=== PATIENT | female | born 1960 | race Caucasian/White ===

== ENCOUNTER 2016-09-13 10:54 | Emergency (ER) | payer OTHER ==
[~2016-09-13] VITALS: Ht 165.1 cm; Wt 51.8 kg
[~2016-09-13 10:54] MED LIST: ALBU18HF INHALATION; ALPR1TAB2 PO; AZIT250T94 PO; BACTDS PO; IBUP-1542 PO; ONDA4TAB8 PO; PRED20TA PO; VITAMIN D WEEKLY; [UNRECOGNIZED DRUG - OTHER]
[2016-09-13 11:05] VITALS: Ht 165.1 cm; Wt 51.8 kg
--- NOTE | 2016-09-13 13:13 | RADRPT ---
PROCEDURE: Chest x-ray CLINICAL INDICATION: cough. TECHNIQUE: One-view frontal. COMPARISON: 10/22/2015 FINDINGS: The cardiac silhouette is normal. No infiltrates are noted. No hilar abnormalities are identified. No pneumothorax or pleural effusions are visualized. Numerous surgical clips overlie the right hilar region and right lower lung zone. IMPRESSION: 1. No active cardiopulmonary changes. RPTAT: HH .Navjot Garber MD, MD Date Time Electronically viewed and signed by .Navjot Garber MD, MD on 09/13/2016 13:12 .G/
[2016-09-13] MEDS ORDERED: LIDOCAINE/MYLANTA 40 ML BTL PO ONE (13:30)
[2016-09-13 13:57] LABS: BASOPHILS % 0.5 % (0.0-2.0); EOSINOPHILS # 0.1 10^3/ul (0.0-0.5); HEMATOCRIT 40.5 % (37.0-47.0); HEMOGLOBIN 13.5 g/dl (12.0-16.0); LYMPHOCYTES # 0.6 10^3/ul (0.8-2.9); LYMPHOCYTES % 9.7 % (15.0-51.0); MEAN CORPUSCULAR HEMOGLOBIN 29.9 pg (29.0-33.0); MEAN CORPUSCULAR HGB CONC 33.3 g/dl (32.0-37.0); MEAN CORPUSCULAR VOLUME 89.7 fl (82.0-101.0); MEAN PLATELET VOLUME 8.1 fl (7.4-10.4); MONOCYTE # 0.7 10^3/ul (0.3-0.9); MONOCYTES % 10.5 % (0.0-11.0); NEUTROPHIL # 5.1 10^3/ul (1.6-7.5); NEUTROPHILS % 77.3 % (39.0-77.0); PLATELET COUNT 263 10^3/UL (140-440); RED BLOOD COUNT 4.52 10^6/ul (4.20-5.40); RED CELL DISTRIBUTION WIDTH 13.7 % (11.5-14.5); UNCORRECTED WBC 6.6 10^3/ul (4.8-10.8); WHITE BLOOD COUNT 6.6 10^3/ul (4.8-10.8)
[2016-09-13 14:00] LABS: CONDITION 1
[2016-09-13 14:10] LABS: ALBUMIN 4.5 g/dl (3.3-4.9); CHLORIDE 100 mmol/L (97-110); SODIUM 143 mmol/L (135-144)
[2016-09-13 14:11] LABS: POTASSIUM 4.1 mmol/L (3.5-5.1)
[2016-09-13 14:12] LABS: CREATININE 0.64 mg/dl (0.44-1.00)
[2016-09-13 14:13] LABS: ALANINE AMINOTRANSFERASE 29 IU/L (13-69); ALBUMIN/GLOBULIN RATIO 1.18; ALKALINE PHOSPHATASE 106 IU/L (42-121); ANION GAP 19 (8-16); ASPARTATE AMINO TRANSFERASE 35 IU/L (15-46); BILIRUBIN,INDIRECT 0.2 mg/dl (0-1.1); BILIRUBIN,TOTAL 0.2 mg/dl (0.2-1.3); BLOOD UREA NITROGEN 10 mg/dl (7-20); CARBON DIOXIDE 28 mmol/L (21-31); GLUCOSE 100 mg/dl (70-220); TOTAL PROTEIN 8.3 g/dl (6.1-8.1)
[2016-09-13 14:14] LABS: CALCIUM 9.1 mg/dl (8.4-10.2)
[2016-09-13 14:26] LABS: TROPONIN-I < 0.012 ng/ml (0.00-0.12)
[2016-09-13 14:56] LABS: D-DIMER < 220.00 ng/ml (<460)
[2016-09-13] MEDS ORDERED: FAMO-18 PO (15:21)
[2016-09-13] MEDS ORDERED: BENZ100C70 PO (15:21)
[2016-09-13] MEDS ORDERED: ACET500C5 PO (15:21)
--- NOTE | 2016-09-13 15:28 | ERD ---
ER Documentation Chief Complaint Date/Time DATE: 09/13/16 TIME: 15:23 Chief Complaint pt bib self with c/o cough and feels sob, tired for a few wks HPI 56-year-old female with a past medical history of hyperlipidemia, breast cancer presents to the ED complaining of a burning sensation in her chest. States that she has a productive cough. Reports that she has itchy ears. States that her bilateral calves are also slightly painful. States that the pain as an achy type of pain and rates it a 8 out of 10. Denies any weakness, shortness of breath, abdominal pain, nausea, vomiting, numbness or tingling. Patient reports that her neighbor is also sick with similar symptoms of cough. Patient reports that she also traveled to [facility] All systems reviewed and are negative except as per history of present illness. Medications Home Meds Active Scripts Famotidine* (Pepcid*) 20 Mg Tablet, 20 MG PO BID, #30 TAB Prov:ALESSANDRO MENA-C 09/13/16 Benzonatate* (Tessalon Perle*) 100 Mg Capsule, 100 MG PO Q8H Y for COUGH, #20 CAP Prov:ALESSANDRO MENA-C 09/13/16 Acetaminophen* (Tylophen*) 500 Mg Capsule, 1 CAP PO Q6H Y for PAIN AND OR ELEVATED TEMP, #20 CAP Prov:ALESSANDRO MENA-C 09/13/16 Ondansetron Hcl* (Zofran*) 4 Mg Tablet, 4 MG PO Q6H for NAUSEA AND/OR VOMITING, #30 TAB Prov:VIC,CAROLINA P FONDANT MACHINE OPERATOR 03/08/16 Azithromycin* (Zithromax*) 250 Mg Tablet, 250 MG PO DAILY for 4 Days, TAB Prov:MANAGYADYODCAROLINA P FONDANT MACHINE OPERATOR 03/08/16 Sulfamethoxazole-Trimethoprim* (Bactrim* DS) 800-160 Mg Tab, 1 TAB PO BID for 7 Days, #14 TAB Prov:ABELINO TRAN MD 03/03/16 Prednisone* (Prednisone*) 20 Mg Tab, 40 MG PO DAILY for 4 Days, TAB Prov:ABELINO TRAN MD 03/03/16 Prednisone* (Prednisone*) 20 Mg Tab, 40 MG PO DAILY for 4 Days, TAB Prov:ABELINO TRAN MD 10/22/15 Albuterol Sulfate* (Ventolin HFA*) 18 Gm Hfa.aer.ad, 2 PUFF INHALATION Q4H for 7 Days, INHALER Prov:ABELINO TRAN MD 10/22/15 Ibuprofen* (Ibuprofen*) 600 Mg Tablet, 600 MG PO Q6, #14 TAB Prov:ABELINO TRAN MD 10/22/15 Reported Medications [vitamin D weekly] No Conflict Check 09/05/14 [nueroton] No Conflict Check 09/05/14 Alprazolam* (Xanax*) 1 Mg Tab, 1 MG PO Q8H Y for ANXIETY, TAB 09/05/14 Allergies Allergies: Coded Allergies: Penicillins (Verified Allergy, Unknown, ANAPHALAXIS, 05/25/14) REACTION TO ALL "CILLINS" PER PT. lidocaine (Verified Allergy, Unknown, ANAPHALAXIS, 05/25/14) "EVERYTHING "PIPE" " PER PT. Uncoded Allergies: BARIUM (Allergy, Unknown, ABD SWELLING, 05/23/14) PMhx/Soc History of Surgery: Yes (MASTECTOMY, BREAST RECONSTRUCTION, LEFT KNEE) Anesthesia Reaction: Yes (nausea, diaphoretic) Hx Neurological Disorder: No Hx Respiratory Disorders: Yes Hx Cardiac Disorders: No Hx Psychiatric Problems: No Hx Miscellaneous Medical Probl: Yes (HYPERLIPEDEMIA, BRONCHITIS) Hx Alcohol Use: No Hx Substance Use: No Hx Tobacco Use: No Smoking Status: Never smoker Physical Exam Vitals Vital Signs Date Time Temp Pulse Resp B/P Pulse Ox O2 Delivery O2 Flow Rate FiO2 09/13/16 11:05 98.3 104 18 103/69 98 Physical Exam Const: [id number], well-nourished. In no acute distress. Head: Atraumatic, normocephalic Eyes: Normal Conjunctiva without injection. No purulent discharge. PERRL. EOMI ENT: Normal external ear. Ear canal without erythema. Tympanic membrane pearly mcduffie without effusion or bulging. Nasal canal clear with normal turbinates. Moist oropharynx without tonsillar exudates. Non-erythematous pharynx. Uvula midline. No drooling. No trismus. Neck: Full range of motion. No meningismus. No cervical lymphadenopathy. Resp: Clear to auscultation bilaterally. No wheezing, rhonchi, rales, or crackles. No accessory muscle use. No retractions. Cardio: Regular rate and rhythm. No murmurs, rubs or gallops. Abd: Soft, non tender, non distended. Normal bowel sounds. No palpable masses. No rebound tenderness. No guarding. Skin: No petechiae or rashes Back: No midline tenderness. No CVA tenderness. Ext: No cyanosis, or edema. Neur: Awake and alert. Psych: Normal Mood and Affect Result Diagram: 09/13/16 1340 09/13/16 1340 Results 24 hrs Laboratory Tests Test 09/13/16 13:40 Alanine Aminotransferase (ALT/SGPT) 29IU/L Albumin 4.5g/dl Albumin/Globulin Ratio 1.18 Alkaline Phosphatase 106IU/L Anion Gap 19 Aspartate Amino Transf (AST/SGOT) 35IU/L Basophils # 0.010^3/ul Basophils % 0.5% Blood Urea Nitrogen 10mg/dl Calcium Level 9.1mg/dl Carbon Dioxide Level 28mmol/L Chloride Level 100mmol/L Creatinine 0.64mg/dl D-Dimer < 220.00ng/ml D-Dimer Comment Direct Bilirubin 0.00mg/dl Eosinophils # 0.110^3/ul Eosinophils % 2.0% Globulin 3.80g/dl Glucose Level 100mg/dl Hematocrit 40.5% Hemoglobin 13.5g/dl Indirect Bilirubin 0.2mg/dl Lipase 111U/L Lymphocytes # 0.610^3/ul Lymphocytes % 9.7% Mean Corpuscular Hemoglobin 29.9pg Mean Corpuscular Hemoglobin Concent 33.3g/dl Mean Corpuscular Volume 89.7fl Mean Platelet Volume 8.1fl Monocytes # 0.710^3/ul Monocytes % 10.5% Neutrophils # 5.110^3/ul Neutrophils % 77.3% Nucleated Red Blood Cells # 0.010^3/ul Nucleated Red Blood Cells % 0.0/100WBC Platelet Count 25621^3/UL Potassium Level 4.1mmol/L Red Blood Count 4.5210^6/ul Red Cell Distribution Width 13.7% Sodium Level 143mmol/L Total Bilirubin 0.2mg/dl Total Protein 8.3g/dl Troponin I < 0.012ng/ml White Blood Count 6.610^3/ul Current Medications Medications (Trade) Dose Ordered Sig/Oscar Route PRN Reason Start Time Stop Time Status Last Admin Dose Admin Miscellaneous Medication (Gi Cocktail (2)) 40 ml ONCE ONCE PO 09/13/16 13:30 09/13/16 13:31 DC 09/13/16 13:43 Procedures/MDM 56-year-old female with a past medical history of breast cancer, hyperlipidemia presents the ED complaining of a burning sensation in her chest, productive cough, bilateral calf pain. Patient is afebrile and nontoxic-appearing. Patient is slightly tachycardic at 104. EKG, chest x-ray, CBC, CMP, lipase, d- dimer, troponin was ordered to further evaluate patient. Patient was treated with here in the ED with GI cocktail with improvement of her pain. CBC: No leukocytosis. No e/o of systemic infection. No e/o anemia. CMP: No e/o severe acidosis, alkalosis, renal failure, diabetic ketoacidosis, liver disease Lipase within normal limits. Urine: No leukocyte esterase, no nitrites, no hematuria. Troponin negative D-Dimer negative PERC Criteria Assessment: Age > 50: Yes HR > 100: Yes 02 < 95%: No H/o DVT/PE: No Recent trauma/surgery: No Hemoptysis: No Exogenous Estrogen: No Unilateral Leg swelling: No Pretest probability > 15%: No EKG reviewed and interpreted by Dr. Palomo Rate/Rhythm: [Normal Sinus Rhythm] No ectopy, no ST elevations, normal axis. QRS, ST, T-waves: [No changes consistent w/ acute ischemia] Impression: [No evidence of ischemia or arrhythmia] Low suspicion for acute myocardial infarction, pneumothorax, pneumonia, cardiac tamponade, pulmonary embolism, AAA, aortic dissection, Boerhaave's syndrome, cardiac dysrhythmias,meningitis, intracranial bleed, seizure, stroke, TIA or other emergent conditions. PROCEDURE: Chest x-ray CLINICAL INDICATION: cough. TECHNIQUE: One-view frontal. COMPARISON: 10/22/2015 FINDINGS: The cardiac silhouette is normal. No infiltrates are noted. No hilar abnormalities are identified. No pneumothorax or pleural effusions are visualized. Numerous surgical clips overlie the right hilar region and right lower lung zone. IMPRESSION: 1. No active cardiopulmonary changes. This patient presents to the ED with symptoms consistent with a viral influenza. Patient is afebrile and has normal vital signs. Patient's physical exam include lungs which were clear to auscultation and a normal pulse oximetry. There is a low suspicion for pneumonia, pneumothorax, pulmonary embolism, epiglottitis, otitis media, otitis externa, viral/strep pharyngitis, sinusitis, peritonsillar abscess, mastoiditis, retropharyngeal abscess, meningitis, sepsis, acute abdomen or other emergent conditions. Fluids, rest, and symptomatic treatment are recommended for the management of patient's symptoms. Discharge medications: Tessalon Perles, Tylenol, Famotidine Follow up with primary care physician in 1-2 days. Instructed patient to return to the ED sooner for any worsening symptoms. Patient's questions were answered. Patient understood and agreed with discharge plan. Patient discharged stable. Departure Diagnosis: Primary Impression: Flu-like symptoms Condition: Stable Patient Instructions: Gerd (Adult), Influenza (Adult) Referrals: PENDING SALE TO [facility] YOU HAVE RECEIVED A MEDICAL SCREENING EXAM AND THE RESULTS INDICATE THAT YOU DO NOT HAVE A CONDITION THAT REQUIRES URGENT TREATMENT IN THE EMERGENCY DEPARTMENT. FURTHER EVALUATION AND TREATMENT OF YOUR CONDITION CAN WAIT UNTIL YOU ARE SEEN IN YOUR DOCTORS OFFICE WITHIN THE NEXT 1-2 DAYS. IT IS YOUR RESPONSIBILITY TO MAKE AN APPOINTMENT FOR [facility]- CARE. IF YOU HAVE A PRIMARY DOCTOR --you should call your primary doctor and schedule an appointment IF YOU DO NOT HAVE A PRIMARY DOCTOR YOU CAN CALL OUR PHYSICIAN REFERRAL HOTLINE AT IF YOU CAN NOT AFFORD TO SEE A PHYSICIAN YOU CAN CHOSE FROM THE FOLLOWING [facility] [address] [facility]. [facility] [address] [facility] [facility] [address] [facility] [facility] [address] [facility]. [facility] [address] [facility]. [facility]. [address] [facility] YOU HAVE RECEIVED A MEDICAL SCREENING EXAM AND THE RESULTS INDICATE THAT YOU DO NOT HAVE A CONDITION THAT REQUIRES URGENT TREATMENT IN THE EMERGENCY DEPARTMENT. FURTHER EVALUATION AND TREATMENT OF YOUR CONDITION CAN WAIT UNTIL YOU ARE SEEN IN YOUR DOCTORS OFFICE WITHIN THE NEXT 1-2 DAYS. IT IS YOUR RESPONSIBILITY TO MAKE AN APPOINTMENT FOR FOLOW-UP CARE. IF YOU HAVE A PRIMARY DOCTOR --you should call your primary doctor and schedule and appointment IF YOU DO NOT HAVE A PRIMARY DOCTOR YOU CAN CALL OUR PHYSICIAN REFERRAL HOTLINE AT . IF YOU CAN NOT AFFORD TO SEE A PHYSICIAN YOU CAN CHOSE FROM THE FOLLOWING ON LICENSE OF [facility] INSTITUTIONS: [facility] [address] [place] [address] [facility] [address] [place] [address] [facility] + [facility] [address] [place] [address] [facility] URGENT CARE/SPECIALTIES Additional Instructions: FOLLOW UP WITH YOUR PRIMARY CARE PHYSICIAN TOMORROW.Return to this facility if you are not improving as expected. ALESSANDRO MENA PA-C Sep 13, 2016 15:28
[2016-09-13 15:35] VITALS: BP 108/71; PULSE 94; RESP 18; TEMP 98.4
== END 2016-09-13 15:35 | disposition home or self-care (01) ==
LOC: FTE 10:54
DX: R05 Cough (principal); R07.89 Other chest pain; M79.662 Pain in left lower leg; M79.661 Pain in right lower leg; Z85.3 Personal history of malignant neoplasm of breast
CPT/HCPCS: 36415; 71010; 80053; 83690; 84484; 85025; 85378; 93005; Z7502; Z7610

== ENCOUNTER 2016-09-24 13:11 | Emergency (ER) | payer OTHER ==
[~2016-09-24] VITALS: Wt 51.5 kg
[~2016-09-24 13:11] MED LIST changes: +ACET500C5 PO; +BENZ100C70 PO; +FAMO-18 PO
[2016-09-24] MEDS ORDERED: AZIT250T94 PO (14:28)
--- NOTE | 2016-09-24 15:26 | ERD ---
ER Documentation Chief Complaint Date/Time DATE: 09/24/16 TIME: 15:23 Chief Complaint coughing and white sputum for the past few days. no recent fevers. HPI This is a 56-year-old female presents to the ER with cough for the last month. Patient states she isn't coughing up white sputum. Patient was here recently and was given lidocaine. Patient states that we tried to "poison" her, because he gave her something that she is allergic to. Patient states that because of this she developed a line infection. Patient denies any chest pain or shortness of breath. She denies any fevers or chills. She denies any weight loss. She denies any rashes. She denies any, tongue, eye swelling. ROS 12 point review of systems was done, all negative except per HPI. Medications Home Meds Active Scripts Azithromycin* (Zithromax*) 250 Mg Tablet, 250 MG PO .ZPACK DIRECTED, #6 TAB TAKE 500 MG (2 TABS) THE FIRST DAY THEN 250 MG (1 TAB) DAYS 2-5 Prov:DANIELE GARCIA 09/24/16 Famotidine* (Pepcid*) 20 Mg Tablet, 20 MG PO BID, #30 TAB Prov:ALESSANDRO MENA-C 09/13/16 Benzonatate* (Tessalon Perle*) 100 Mg Capsule, 100 MG PO Q8H Y for COUGH, #20 CAP Prov:ALESSANDRO MENA-C 09/13/16 Acetaminophen* (Tylophen*) 500 Mg Capsule, 1 CAP PO Q6H Y for PAIN AND OR ELEVATED TEMP, #20 CAP Prov:ALESSANDRO MENA-C 09/13/16 Ondansetron Hcl* (Zofran*) 4 Mg Tablet, 4 MG PO Q6H for NAUSEA AND/OR VOMITING, #30 TAB Prov:MANAGUELOD,CAROLINA P SOUNDING DEVICE OPERATOR 03/08/16 Azithromycin* (Zithromax*) 250 Mg Tablet, 250 MG PO DAILY for 4 Days, TAB Prov:MANAGUELOD,CAROLINA P SOUNDING DEVICE OPERATOR 03/08/16 Sulfamethoxazole-Trimethoprim* (Bactrim* DS) 800-160 Mg Tab, 1 TAB PO BID for 7 Days, #14 TAB Prov:ABELINO TRAN MD 03/03/16 Prednisone* (Prednisone*) 20 Mg Tab, 40 MG PO DAILY for 4 Days, TAB Prov:ABELINO TRAN MD 03/03/16 Prednisone* (Prednisone*) 20 Mg Tab, 40 MG PO DAILY for 4 Days, TAB Prov:ABELINO TRAN MD 10/22/15 Albuterol Sulfate* (Ventolin HFA*) 18 Gm Hfa.aer.ad, 2 PUFF INHALATION Q4H for 7 Days, INHALER Prov:ABELINO TRAN MD 10/22/15 Ibuprofen* (Ibuprofen*) 600 Mg Tablet, 600 MG PO Q6, #14 TAB Prov:ABELINO TRAN MD 10/22/15 Reported Medications [vitamin D weekly] No Conflict Check 09/05/14 [nueroton] No Conflict Check 09/05/14 Alprazolam* (Xanax*) 1 Mg Tab, 1 MG PO Q8H Y for ANXIETY, TAB 09/05/14 Allergies Allergies: Coded Allergies: Penicillins (Verified Allergy, Unknown, ANAPHALAXIS, 05/25/14) REACTION TO ALL "CILLINS" PER PT. lidocaine (Verified Allergy, Unknown, ANAPHALAXIS, 05/25/14) "EVERYTHING "PIPE" " PER PT. sulfamethoxazole (Verified Allergy, Unknown, 09/24/16) trimethoprim (Verified Allergy, Unknown, 09/24/16) Uncoded Allergies: BARIUM (Allergy, Unknown, ABD SWELLING, 05/23/14) PMhx/Soc History of Surgery: Yes (MASTECTOMY, BREAST RECONSTRUCTION, LEFT KNEE) Anesthesia Reaction: Yes (nausea, diaphoretic) Hx Neurological Disorder: No Hx Respiratory Disorders: Yes Hx Cardiac Disorders: No Hx Psychiatric Problems: No Hx Miscellaneous Medical Probl: Yes (HYPERLIPEDEMIA, BRONCHITIS) Hx Alcohol Use: No Hx Substance Use: No Hx Tobacco Use: No Physical Exam Vitals Vital Signs Date Time Temp Pulse Resp B/P Pulse Ox O2 Delivery O2 Flow Rate FiO2 09/24/16 13:29 97.5 74 22 111/71 98 Physical Exam GENERAL: The patient is well-developed, well-nourished, in no acute distress. NECK: Cervical spine is non tender with no step off. Supple, no nuchal rigidity HEENT: Atraumatic. Pupils equal, round and reactive to light. Extraocular muscles are grossly intact. Conjunctivae pink, no discharge. Bilateral tympanic membranes are clear with no evidence of erythema, effusion or dulling of the light reflex. Tonsilar erythema with no exudates or uvular deviation. Clear rhinorrhea. RESPIRATORY: Clear to auscultation bilaterally. There are no rales, wheezes or rhonchi. HEART: Regular rate and rhythm. No murmurs, clicks, rubs or gallops. EXTREMITIES: No clubbing or cyanosis. Full range of motion. Grossly neurovascularly intact. NEUROLOGIC: Alert and oriented. Cranial nerves II through XII are intact. SKIN: There is no rash. The skin is warm and dry. Procedures/MDM Differential diagnosis includes but is not limited to; Viral URI, allergic rhinitis, bronchitis, pertussis,pneumonia. Patient has had a cough for over a month, patient may have a bacterial component to this infection. She'll be sent home with azithromycin. I do not believe the patient is having allergic reaction secondary to lidocaine given over 2 weeks ago. Patient is well appearing. Patient does appear to be anxious. There is no evidence of any lip, tongue, eye swelling. Patient did not have any rashes.. Clinical suspicion for pneumonia is low as patient appears well, is not hypoxic or in any respiratory distress. Additionally, patients physical examination is benign. Plan was discussed with patient they understand and agree. Patient needs to follow up with PCP in 1-2 days or return to ER sooner if symptoms worsen. Departure Diagnosis: Primary Impression: Bronchitis Condition: Stable Patient Instructions: What Is Bronchitis? Additional Instructions: Llame al doctor CRISELDA y everett elsa SUMMER PARA DENTRO DE 1-2 BAHENA.Dgale a la secretaria que nosotros le instruimos hacer esta summer.Avise o llame si isaacs condicin se empeora antes de la summer. Regresa aqui si peor o no mejor. DANIELE GARCIA Sep 24, 2016 15:26
== END 2016-09-24 14:30 | disposition home or self-care (01) ==
LOC: E/R 13:11
DX: J20.9 Acute bronchitis, unspecified (principal)
CPT/HCPCS: 99283

== ENCOUNTER 2017-02-14 14:33 | Emergency (ER) | payer OTHER ==
[~2017-02-14] VITALS: Wt 55.0 kg
[~2017-02-14 14:33] MED LIST changes: -FAMO-18 PO; +FAMO-96 PO
[2017-02-14] MEDS ORDERED: ACETAMINOPHEN 500 MG TAB PO STA (15:10)
--- NOTE | 2017-02-14 15:49 | RADRPT ---
PROCEDURE: XR Left Ankle CLINICAL INDICATION: Trauma TECHNIQUE: Standard 3 view radiographs were submitted. COMPARISON: None FINDINGS: Osseous structures: Well mineralized and intact with no fracture or destructive process identified. Joint spaces: Well maintained with no significant erosions or spurring evident. Soft tissues: Appear unremarkable. IMPRESSION: Unremarkable left ankle. Physician Kobe Date Time Electronically viewed and signed by Eric Bravo Physician on 02/14/2017 15:49 RH/
--- NOTE | 2017-02-14 15:50 | RADRPT ---
PROCEDURE: XR Left Wrist with Navicular View CLINICAL INDICATION: Trauma TECHNIQUE: PA, lateral, and oblique views as well as a carpal navicular view were submitted. COMPARISON: None FINDINGS: Osseous structures: The osseous elements appear mildly rarefied but intact with no fracture identifi ed. Joint spaces: There is mild narrowing of the radiocarpal joint. Soft tissues: appear unremarkable. IMPRESSION: 1. Mild osteoporosis with no fracture identified. 2. Mild narrowing of the radiocarpal joint. Physician Kobe Date Time Electronically viewed and signed by Eric Bravo Physician on 02/14/2017 15:50 RH/
[2017-02-14] MEDS ORDERED: IBUP400T22 PO (16:15)
[2017-02-14] MEDS ORDERED: TRAM-40 PO (16:15)
--- NOTE | 2017-02-14 16:20 | ERD ---
ER Documentation Chief Complaint Date/Time DATE: 02/14/17 TIME: 16:17 Chief Complaint LEFT ANKLE AND BILAT WRIST PAIN S/P FALL 02/13 HPI This 56-year-old female fell yesterday after tripping and complains of left ankle pain and left wrist pain. She thought she would get better but is concerned that her pain persist since yesterday. She denies restricted range of motion weakness or bleeding laceration. There is no history of head injury, neck pain, weakness. ROS All systems reviewed and are negative except as per history of present illness. Medications Home Meds Active Scripts Ibuprofen* (Motrin*) 400 Mg Tab, 400 MG PO Q6H Y for PAIN, #14 TAB Prov:ABELINO TRAN MD 02/14/17 Tramadol Hcl* (Ultram*) 50 Mg Tablet, 50 MG PO Q6H Y for PAIN, #15 TAB Prov:ABELINO TRAN MD 02/14/17 Azithromycin* (Zithromax*) 250 Mg Tablet, 250 MG PO .RonniePACK DIRECTED, #6 TAB TAKE 500 MG (2 TABS) THE FIRST DAY THEN 250 MG (1 TAB) DAYS 2-5 Prov:DANIELE GARCIA 09/24/16 Famotidine* (Pepcid*) 20 Mg Tablet, 20 MG PO BID, #30 TAB Prov:ALESSANDRO MENA PA-C 09/13/16 Benzonatate* (Tessalon Perle*) 100 Mg Capsule, 100 MG PO Q8H Y for COUGH, #20 CAP Prov:ALESSANDRO MENA PA-C 09/13/16 Acetaminophen* (Tylophen*) 500 Mg Capsule, 1 CAP PO Q6H Y for PAIN AND OR ELEVATED TEMP, #20 CAP Prov:ALESSANDRO MENA-Dorothea 09/13/16 Ondansetron Hcl* (Zofran*) 4 Mg Tablet, 4 MG PO Q6H for NAUSEA AND/OR VOMITING, #30 TAB Prov:MANAGUELOD,CAROLINA P IT SECURITY SPECIALIST 03/08/16 Azithromycin* (Zithromax*) 250 Mg Tablet, 250 MG PO DAILY for 4 Days, TAB Prov:MANAGUELOD,CAROLINA P IT SECURITY SPECIALIST 03/08/16 Sulfamethoxazole-Trimethoprim* (Bactrim* DS) 800-160 Mg Tab, 1 TAB PO BID for 7 Days, #14 TAB Prov:ABELINO TRAN MD 03/03/16 Prednisone* (Prednisone*) 20 Mg Tab, 40 MG PO DAILY for 4 Days, TAB Prov:ABELINO TRAN MD 03/03/16 Prednisone* (Prednisone*) 20 Mg Tab, 40 MG PO DAILY for 4 Days, TAB Prov:ABELINO TRAN MD 10/22/15 Albuterol Sulfate* (Ventolin HFA*) 18 Gm Hfa.aer.ad, 2 PUFF INHALATION Q4H for 7 Days, INHALER Prov:ABELINO TRAN MD 10/22/15 Ibuprofen* (Ibuprofen*) 600 Mg Tablet, 600 MG PO Q6, #14 TAB Prov:ABELINO TRAN MD 10/22/15 Reported Medications [vitamin D weekly] No Conflict Check 09/05/14 [nueroton] No Conflict Check 09/05/14 Alprazolam* (Xanax*) 1 Mg Tab, 1 MG PO Q8H Y for ANXIETY, TAB 09/05/14 Allergies Allergies: Coded Allergies: Penicillins (Verified Allergy, Unknown, ANAPHALAXIS, 05/25/14) REACTION TO ALL "CILLINS" PER PT. lidocaine (Verified Allergy, Unknown, ANAPHALAXIS, 05/25/14) "EVERYTHING "PIPE" " PER PT. sulfamethoxazole (Verified Allergy, Unknown, 09/24/16) trimethoprim (Verified Allergy, Unknown, 09/24/16) Uncoded Allergies: BARIUM (Allergy, Unknown, ABD SWELLING, 05/23/14) PMhx/Soc History of Surgery: Yes (MASTECTOMY, BREAST RECONSTRUCTION, LEFT KNEE) Anesthesia Reaction: Yes (nausea, diaphoretic) Hx Neurological Disorder: No Hx Respiratory Disorders: Yes Hx Cardiac Disorders: No Hx Psychiatric Problems: No Hx Miscellaneous Medical Probl: Yes (HYPERLIPEDEMIA, BRONCHITIS) Hx Alcohol Use: No Hx Substance Use: No Hx Tobacco Use: No Physical Exam Vitals Vital Signs Date Time Temp Pulse Resp B/P Pulse Ox O2 Delivery O2 Flow Rate FiO2 02/14/17 14:43 97.9 75 20 119/78 100 Physical Exam Const: [] Alert, [id number] Head: Atraumatic Eyes: Normal Conjunctiva ENT: Normal External Ears, Nose and Mouth. Neck: Full range of motion..~ No meningismus. Resp: Clear to auscultation bilaterally Cardio: Regular rate and rhythm, no murmurs Abd: Soft, non tender, non distended. Normal bowel sounds Skin: No petechiae or rashes Back: No midline or flank tenderness Ext: No cyanosis, or edema. Mild tenderness in the left wrist joint without deformities, restricted range of motion or weakness. There is no scaphoid tenderness. Minimal tenderness in the left ankle joint without deformities, erythema, warmth, restricted range of motion weakness. Neur: Awake and alert Psych: Normal Mood and Affect Results 24 hrs Current Medications Medications (Trade) Dose Ordered Sig/Oscar Route PRN Reason Start Time Stop Time Status Last Admin Dose Admin Acetaminophen (Tylenol Tab) 500 mg ONCE STAT PO 02/14/17 15:10 02/14/17 15:12 DC 02/14/17 15:43 Procedures/MDM X-ray left wrist 3V Interpreted by me: Scaphoid: [Normal] Bones: [No fracture] Joints: [No dislocation] Foreign body: [None]. Impression-normal left wrist x-ray X-ray left ankle 3V Interpreted by me: Bones: [No fracture] Joints: No dislocation. Impression-normal left ankle x-ray Patient was placed in left wrist Velcro brace. Patient is neurovascular intact after the brace. Patient was also placed on left ankle Akin bandage. Patient is neurovascular intact after the Akin bandage. Patient presents after mechanical fall yesterday and signs and symptoms are consistent with left wrist sprain and ankle sprain. Is no evidence of fracture , dislocation, signs or symptoms to suggest injury, deficits, additional injuries. She will be treated with tramadol ibuprofen and further observation at home . Departure Diagnosis: Primary Impression: Fall Encounter type: initial encounter Qualified Code: W19.XXXA - Fall, initial encounter Patient Instructions: Treating Ankle Sprains, Wrist Sprain Additional Instructions: X-rays read as normal. Recheck with primary doctor possibly orthopedist for pain this week. Recheck otherwise for new or worsening symptoms. ABELINO TRAN MD Feb 14, 2017 16:20
== END 2017-02-14 16:30 | disposition home or self-care (01) ==
LOC: FTE 14:33
DX: S99.912A Unspecified injury of left ankle, initial encounter (principal); S69.92XA Unspecified injury of left wrist, hand and finger(s), initial encounter; W01.0XXA Fall on same level from slipping, tripping and stumbling without subsequent striking against object, initial encounter; Y92.9 Unspecified place or not applicable
CPT/HCPCS: 29125; 73110; 73610; Z7502; Z7610

== ENCOUNTER 2017-07-29 06:30 | Day surgery (SDC) | payer OTHER ==
[~2017-07-29] VITALS: Ht 165.1 cm; Wt 52.8 kg
[~2017-07-29 06:30] MED LIST changes: +IBUP400T22 PO; +TRAM-40 PO
[2017-07-29 07:10] VITALS: Ht 165.1 cm; Wt 52.8 kg
[2017-07-29] MEDS ORDERED: GABA300C16 PO (07:21)
[2017-07-29] MEDS ORDERED: LORA10TA3 PO (07:21)
[2017-07-29] MEDS ORDERED: RANI50VI5 IJ (07:21)
[2017-07-29] MEDS ORDERED: CARI350T29 PO (07:21)
[2017-07-29] MEDS ORDERED: FLUO20CA22 PO (07:21)
[2017-07-29 07:45] VITALS: BP 166/79; PULSE 66; RESP 22
--- NOTE | 2017-07-29 08:14 | OPPN ---
Date/Time of Note Date/Time of Note DATE: 07/29/17 TIME: 08:11 Proc Note GI Procedure Date 07/29/17 Indication: screening/surveillance, diagnostic Pre-procedure Diagnosis chronic nausea screening colonoscopy Post-procedure Diagnosis gerd gastritis hemorrhoids proctitis Procedure Performed: Endoscopy, Colonoscopy Surgeon see signature line Core Winding Operator none Anesthesia Type: moderate sedation Tourniquet Time none EBL none Transfusion required none Biopsy 1: gastric and rectal Grafts/Implants none Tubes/Drains none Complication(s) none Disposition: home Procedure Description chronic nausea abd discomfort screening coloonoscopy CALIN SANCHEZ MD Jul 29, 2017 08:14
[2017-07-29] MEDS ORDERED: FENTAnyl 50 MCG/ML VIAL ONE (08:23)
[2017-07-29] MEDS ORDERED: MIDAZOLAM 1 MG/ML 2 ML INJ ONE ×2 (08:23→08:24)
[2017-07-29] MEDS ORDERED: LIDOCAINE 4% SOLUTION 50 ML BTL ONE (08:24)
--- NOTE | 2017-07-30 07:05 | GILP ---
DATE OF PROCEDURE: 07/29/2017 PROCEDURE: Esophagogastroduodenoscopy. PREOPERATIVE DIAGNOSIS: Patient presenting with history of chronic abdominal discomfort, chronic na usea, rule out gastroesophageal reflux disease, peptic ulcer disease. POSTOPERATIVE DIAGNOSES: 1. Mild reflux esophagitis, Roberts classification A. 2. Patchy gastritis of the stomach, mostly in the fundus of the stomach. Biopsy was done from the antrum, the lesser curvature lesser curvature and the fundus to rule out H. pylori infection. Duode num appeared normal. DESCRIPTION OF PROCEDURE: After informed written consent was obtained, the patient was asked to lie on the left lateral side. Intravenous anesthesia was given which included 3 mg Versed and 50 mcg o f fentanyl. When the patient became somnolent, the Olympus video upper endoscope was introduced int o the oropharynx, then into the esophagus. Several few areas of erythema noted above the GE junctio n indicating mild reflux esophagitis. Scope at this time was advanced into the stomach. Fundus of the stomach showed evidence of friability and erythema in a patchy distribution indicating mild refl ux, mild gastritis. Biopsy was done from the antrum, the lesser curvature and the fundus to rule ou t H. pylori infection. Mucosa of the duodenum was examined from the bulb all the way up to the thir d portion, which appeared normal. Endoscope at this time was withdrawn and no additional abnormalit ies detected and the procedure was terminated. PLAN: Recommend omeprazole 40 mg once a day before breakfast for 2 months and meanwhile wait for e pathology report. Dictated By: CALIN CHAPA/EDEN Conf#: [id number] DID#: [id number]
--- NOTE | 2017-07-30 07:07 | GILP ---
DATE OF PROCEDURE: 07/29/2017 PROCEDURE: Colonoscopy. PREOPERATIVE DIAGNOSIS: Patient presenting with history of chronic constipation. This is a screeni ng colonoscopy to rule out colon polyps. POSTOPERATIVE DIAGNOSES: 1. Proctitis of milder degree. 2. Moderate degree of internal and external hemorrhoids. DESCRIPTION OF PROCEDURE: After the informed written consent was obtained, the patient was asked to lie on the left lateral side. Patient was given intravenous anesthesia which included 4 mg Versed and 100 mcg of fentanyl. When the patient became somnolent, the Olympus video colonoscope was intro duced into the rectum and scope was advanced all the way to the cecum. The entire colon appeared pe rfectly normal. No polyps, carcinoma noted. Endoscope at this time was withdrawn. On the way out, retroflexion was performed. Minimal internal hemorrhoids were noted. The rectum showed evidence o f several areas of erythema and some friability. Biopsy was done to rule out inflammatory bowel dis ease. Scope at this time was withdrawn, a moderate degree of external hemorrhoids were noted and th e procedure was terminated. PLAN: Recommend wait for the pathology report. Dictated By: CALIN CHAPA/EDEN Conf#: [id number] DID#: [id number]
== END 2017-07-29 18:17 | disposition home or self-care (01) ==
LOC: GIL 06:30
PROVIDERS: ATTEND Internal Medicine Gastroenterology
DX: Z12.11 Encounter for screening for malignant neoplasm of colon (principal); K64.8 Other hemorrhoids; K64.4 Residual hemorrhoidal skin tags; K21.0 Gastro-esophageal reflux disease with esophagitis; K29.70 Gastritis, unspecified, without bleeding
CPT/HCPCS: 43239; 45378; 88305; 88312; J2250; J3010; Z7610

== ENCOUNTER 2018-05-06 09:25 | Emergency (ER) | END 2018-05-06 10:41 | disposition home or self-care (01) ==

== ENCOUNTER 2019-05-05 11:12 | Emergency (ER) | payer OTHER ==
[~2019-05-05] VITALS: Ht 165.1 cm; Wt 49.8 kg
[~2019-05-05 11:12] MED LIST changes: -AZIT250T94 PO; -BACTDS PO; -BENZ100C70 PO; +CARI350T29 PO; +DOCU-144 PO; -FAMO-96 PO; +FLUO20CA22 PO; +GABA300C16 PO; +HYDR-3980 PO; -IBUP400T22 PO; +LORA10TA3 PO; +ONDA4TAB14 PO; -ONDA4TAB8 PO; -PRED20TA PO; +RANI50VI5 IJ; -TRAM-40 PO; -[UNRECOGNIZED DRUG - OTHER]
[2019-05-05 11:16] VITALS: BP 138/78; PULSE 59; RESP 17; Ht 165.1 cm; Wt 49.8 kg
== END 2019-05-05 12:47 | disposition home or self-care (01) ==
LOC: E/R 11:12
DX: M79.602 Pain in left arm (principal); J45.909 Unspecified asthma, uncomplicated; Z85.3 Personal history of malignant neoplasm of breast
CPT/HCPCS: 99282

== ENCOUNTER 2019-05-25 09:25 | Emergency (ER) | payer OTHER ==
[~2019-05-25] VITALS: Ht 157.5 cm; Wt 60.0 kg
[2019-05-25 09:37] VITALS: BP 135/90; PULSE 90; RESP 18; Ht 157.5 cm; Wt 60.0 kg
== END 2019-05-25 12:32 | disposition home or self-care (01) ==
LOC: FTE 09:25
DX: R53.81 Other malaise (principal); R11.0 Nausea; J45.909 Unspecified asthma, uncomplicated; Z85.3 Personal history of malignant neoplasm of breast
CPT/HCPCS: 36415; 71045; 80053; 81001; 83690; 85025